=== PATIENT | male | born 1990 | race Caucasian/White ===

== ENCOUNTER 2023-10-08 15:16 | Emergency (ER) | payer SELFPAY ==
[~2023-10-08] VITALS: Ht 170.2 cm; Wt 77.0 kg
[2023-10-08 15:27] VITALS: TEMP 97.8; O2SAT 100
[2023-10-08 16:30] VITALS: BP 136/79; PULSE 64; RESP 20
[2023-10-08] MEDS ORDERED: KETOROLAC 30MG/ML VIAL IM ONE (16:30)
[2023-10-08] MEDS ORDERED: IBUP-2029 MT (18:01)
== END 2023-10-08 19:29 | disposition home or self-care (01) ==
LOC: ER 15:16
DX: S00.93XA Contusion of unspecified part of head, initial encounter (principal); S40.812A Abrasion of left upper arm, initial encounter; S40.811A Abrasion of right upper arm, initial encounter; Y08.89XA Assault by other specified means, initial encounter; Y93.89 Activity, other specified; Y92.89 Other specified places as the place of occurrence of the external cause; Y99.8 Other external cause status
CPT/HCPCS: 99283; 96372; J1885